=== PATIENT | female | born 1975 | race Caucasian/White ===

== ENCOUNTER → 2017-08-11 14:33 | Outpatient (CLI) | payer OTHER, MEDICAID, SELFPAY ==
--- NOTE | 2017-08-11 | DI.CT.S_ITS ---
PROCEDURE: CT ABDOMEN PELVIS W CON INDICATIONS: 42 year-old female with right lower pelvic palpable lump for 9 years, with occasional pain. TECHNIQUE: After the administration of oral and intravenous contrast, 5 mm thick sections acquired from the diaphragms to the symphysis. 5 mm thick coronal and sagittal reformats were performed. For radiation dose reduction, the following was used: automated exposure control, adjustment of mA and/or kV according to patient size. COMPARISON: [facility], , ABDOMEN LIMITED, 07/21/2017, 16:36. FINDINGS: Skin marker denotes the site of clinical concern. Image quality: Excellent. ABDOMEN: Lung bases: Lung bases are clear. Heart size is normal. Solid organs: Liver is normal in size and enhancement. Gallbladder wall thickness is normal. Biliary system is non-dilated. Pancreas enhances normally. Spleen is normal in size and enhancement. No adrenal nodules. Kidneys are normal in size and enhancement, without hydronephrosis. Peritoneum and bowel: Stomach, small bowel, and colon loops are normal in caliber and wall thickness. No free fluid or air. Nodes and vessels: No retroperitoneal or mesenteric adenopathy. Aorta and inferior vena cava are normal in caliber, with minimal aortoiliac atherosclerosis. Miscellaneous: No ventral hernias. PELVIS: Genitourinary: Bladder wall thickness is normal. Uterus and ovaries are normal in size. Miscellaneous: At the region of clinical concern in the right inguinal region, 3.3 x 2.0 cm fatty fatty attenuation encapsulated lesion is present, consistent with lipoma. No inguinal hernias or adenopathy. Bones: No suspicious bony lesions. No vertebral body compression fractures. IMPRESSION: Palpable right inguinal hyperechoic lesion on ultrasound corresponds with a 3.3 x 2.0 cm encapsulated benign lipoma on CT scan. No inguinal hernias. Dictated by: Louis Olivier M.D. on 08/11/2017 at 16:25 Approved by: Louis Olivier M.D. on 08/11/2017 at 16:31
== END ==
PROVIDERS: Family Provider Physician Assistant; PCP Physician Assistant; Visit Provider Physician Assistant
DX: D17.79 Benign lipomatous neoplasm of other sites (principal)
CPT/HCPCS: 74177; Q9967

== ENCOUNTER 2017-09-20 10:48 | Day surgery (SDC) | payer OTHER, MEDICAID, SELFPAY ==
[2017-09-19 12:35] VITALS: BMI 19.9
[2017-09-20] VITALS (13 sets, daily range): BP systolic 95–153; BP diastolic 48–88; PULSE 68–91; RESP 14–20; TEMP 36.1–36.7; O2SAT 96–100; BMI 19.9
--- NOTE | 2017-09-20 | PATH_ITS ---
[facility] Accession Number: [id number] . 01 Material submitted: . RIGHT INGUINAL LIPOMA . 02 Diagnosis: Right Inguinal Mass, Excision: Mature adipose tissue consistent with lipoma. No evidence of atypia or malignancy. [facility]/09/22/2017 . 02 Electronically signed: . Frieda Jay MD, Pathologist NPI- [id number] . 01 Gross description: . Received in formalin, labeled right inguinal lipoma, are multiple pieces of vidal-yellow, rubbery adipose tissue (6.8 x 5.0 x 1.3 cm in aggregate) with homogenous unremarkable cut surfaces. The tissue is inked black. Red Cap slices are submitted in cassettes A1-A3. ([id number]) /FRR . 02 Pathologist provided ICD-10: D17.9 . 02 CPT . 118605 Performed at: 01 [facility] [address] [facility], [place], [place] [id number] MD Alex Jones MD Phone: [phone] Performed at: 02 [facility] [address] [place], [place] [id number] MD Freddy Ponce MD Phone: [phone]
--- NOTE | 2017-09-20 07:05 | PM.PREOP ---
Pre-operative Note Interval Note Pre-op Check: History & Physical Reviewed by Physician and Exam Performed H&P completed within 30 days and has changed as indicated here:: History physical examination from September 15, 2017 is current and on the chart. No changes since her visit in the office at that time. Surgical site marked. We will proceed with excision of right inguinal lipoma as planned today.
[2017-09-20] MEDS: LACTATED RINGERS 1,000 ML 42 ML IV (11:29)
--- NOTE | 2017-09-20 11:34 | SUR.PREOP ---
per dr. lewis urine test done not serum
--- NOTE | 2017-09-20 11:35 | SUR.PREOP ---
pt shaved herself on 09/19/2017 small red bumps noted on lower groin area
[2017-09-20] MEDS: CEFAZOLIN 2 GM/100 ML FROZ.PIGGY IV (12:48)
--- NOTE | 2017-09-20 12:52 | SUR.OPER ---
Supine on padded OR bed, head on pillow, arms secured on padded arm boards at <90 degrees abduction, legs uncrossed, safety belt at thigh, tape over blanket over lower legs.
[2017-09-20] MEDS: BUPIVACAINE 0.5% (PF) 30 ML VIAL INJ (13:01)
[2017-09-20] MEDS: LIDOCAINE 1% W/EPI INJ 20 ML INJ (13:01)
--- NOTE | 2017-09-20 13:55 | PM.OP.1 ---
Operative Date/Time/Diagnoses - Date of procedure: 09/20/17 Time of procedure: 13:55 Pre-op diagnosis: Symptomatic right inguinal lipoma Post-op diagnosis: same Procedure & Clinicians Procedure: Open excision of right inguinal lipoma measuring 4 x 4 x 2 cm Same procedure as scheduled: Yes Indications: 42-year-old female who presented with enlarging right inguinal mass over the last several years which has now become symptomatic. The lesion has been causing her pain with activity, including sexual intercourse. Because of the enlarging size of the lesion and associated symptoms excision was recommended. Surgeon: Dashawn Rivera Click Yes if Unassisted: Yes Anesthesia Type: General Operative Notes Findings: 1. Multilobulated in capsulated lipoma extending from the subcutaneous tissue toward the right inguinal canal into the femoral sheath 2. Deepest extent of lipoma extending superficial to the right femoral artery 3. No evidence of right inguinal hernia Closure Type: primary Specimen(s): other (Right inguinal lipoma) Implants & Drains: None Estimated Blood Loss (mL): 5 Blood products transfused: none Procedure in detail: After obtaining informed consent the patient was brought to the operating room placed supine on the table. After satisfactory induction of anesthesia the abdomen and groin were prepped and draped in usual sterile fashion. I should note that the patient had performed her own pubic hair removal at home with a razor last evening. I discussed this with her and her preoperatively with the understanding that there is a slightly higher risk of wound infection under those circumstances. However, she had no gross skin breakage or abrasions that would warrant cancelling the case in light of the fact that we were not implanting foreign material such as mesh. A SCOAP time-out was performed per standard protocol. The mass was palpated and area was infiltrated with a 1 1 mixture 1% lidocaine with 100,000 epinephrine and 0.25% plain Marcaine for postoperative analgesia. Vertical incision for a distance of approximately 3 cm was created over the mass with a 15. Scalpel blade. Bovie was used to achieve hemostasis and carried the dissection down to the capsule of the lipoma. Meticulous sharp dissection using Metzenbaum scissors was employed to liberate the mass from surrounding connective tissue. The rectus sheath along the inguinal canal was identified and left intact. The lesion extended over the lateral border the pubis but did not violate the fascia. Laterally the lesion extended in a multilobulated fashion to the femoral sheath, but I did not have to open the sheath to fully excise the lesion. The lesion was expressed through a small defect in the connective tissue and excised intact in its entirety. Vessels were not exposed. However the femoral artery was clearly palpable immediately deep to the lesion. Hemostasis was achieved with hemostats and 3 0 Vicryl ties as well as 3 0 Vicryl suture ligatures. Small vessels were controlled with the Bovie. Wound was irrigated with copious amount of sterile saline solution and hemostasis was verified. Palpation of the field revealed no evidence of hernias or residual mass. After verifying hemostasis once again the subcutaneous tissue was reapproximated with interrupted 3 0 Vicryl suture. Skin was closed in a running subcuticular fashion with 4 0 Monocryl suture. Dermal adhesive was applied to the skin. Anesthesia was reversed the patient extubated in the operating room. She was taken to recovery in stable condition. Complications: none Condition: stable Disposition: PACU Plan for aftercare: 1. Discharge to home 2. Follow up in surgery Clinic in 2 weeks
[2017-09-20] MEDS: MEPERIDINE 50 MG/ML IV ×2 (14:09→14:15)
[2017-09-20] MEDS: LORazepam 2 MG/ML SYRINGE 0.5 MG IV (14:31)
--- NOTE | 2017-09-20 14:31 | SUR.PHASEI ---
Reports feeling shivering altho no longer seen. Verbalizing another patiuent in pain and her levels up from 0 to 7 with FLACC lower. Given Lorazepam to deal with any anxiety component that may be a part, and for its muscle relaxant properties.
--- NOTE | 2017-09-20 14:43 | SUR.PHASEI ---
ELIZABETH added as patient continues to c/o of cold. Only ocassional and not regular tremulous behavior seen. Ice pack off groin.
--- NOTE | 2017-09-20 14:45 | SUR.PHASEI ---
Pain reported as 7/10 but FLACC=0. Verbalized acute awareness of another patient in pain then forgetful. Multiple questions about small things from SCDs squeezing to concerns about BP. Despite this stable and appears comfortable despite voicing otherwise. PACU stay prolonged by shivering and patient verbalizations although clinically appears stable.
--- NOTE | 2017-09-20 15:00 | SUR.PHASEI ---
ELIZABETH off at 1455.
--- NOTE | 2017-09-20 15:23 | SUR.PHASEII ---
pt t0 opd from pacu , vss, surgical site DCI, taking fluids, boyfriend at side
[2017-09-20] MEDS: HYDROCODONE/ACET 5/325 TABLET 1 TAB PO (15:55)
--- NOTE | 2017-09-20 16:04 | SUR.PHASEII ---
1545 pt opd to void , pain at 2/10 requests meds , taking fliuds and crackers
--- NOTE | 2017-09-20 16:39 | SUR.PHASEII ---
pt ready to go home, vss, incision dci, pain 05/14, boyfriend helping pt to get dressed at 1630
== END 2017-09-20 16:37 | disposition home or self-care (01) ==
PROVIDERS: PCP Physician Assistant; Visit Provider Surgery
PROC: (CPT 11406; principal; 2017-09-20 12:15)
DX: D17.79 Benign lipomatous neoplasm of other sites (principal); F41.9 Anxiety disorder, unspecified; Z79.84 Long term (current) use of oral hypoglycemic drugs
CPT/HCPCS: 11406; J0690; J1100; J2060; J2175; J2250; J2405; J2704; J3010